=== PATIENT | male | born 1960 | race Caucasian/White ===

== ENCOUNTER 2023-12-21 16:18 | Outpatient (CLI) | payer MEDICARE ==
[2023-12-21 18:08] VITALS: BP 128/86; PULSE 79; RESP 20; TEMP 97.8; O2SAT 98
[2023-12-21] MEDS ORDERED: LamoTRIgine 25 MG TABLET PO SCH (21:00)
== END 2023-12-21 18:28 | disposition home or self-care (01) ==
LOC: CSU 16:18 → EDSTATUS 12-27 12:15
PROVIDERS: ATTEND Nurse Practitioner Psychiatric/Mental Health
DX: F40.00 Agoraphobia, unspecified (principal)
CPT/HCPCS: 90839; 90840